=== PATIENT | female | born 1980 | race Caucasian/White ===

== ENCOUNTER → 2020-08-25 | Outpatient (CLI) | payer BC ==
[~2020-08-25] MED LIST: AMOCLA875 PO; AZIT250 PO; HYDR1TAB94 PO
== END ==
LOC: LAB SHORT 11:58 → LAB 11:58
DX: D48.5 Neoplasm of uncertain behavior of skin (principal); D22.39 Melanocytic nevi of other parts of face
CPT/HCPCS: 88305

== ENCOUNTER → 2022-10-18 | Outpatient (CLI) | payer BC ==
[2022-10-19 14:09] LABS: HPV 16 Negative (Negative); HPV 18 Negative (Negative); HPV OTHER HR TYPES Negative (Negative)
== END ==
LOC: LAB SHORT 10:11 → LAB 10:11
PROVIDERS: Family Medicine
DX: Z12.4 Encounter for screening for malignant neoplasm of cervix (principal)
CPT/HCPCS: 87624; G0145

== ENCOUNTER → 2025-02-18 | Outpatient (CLI) | payer BC | LOC: LAB SHORT 13:14 → LAB 13:14 | DX: D22.61 Melanocytic nevi of right upper limb, including shoulder (principal); D48.5 Neoplasm of uncertain behavior of skin | CPT/HCPCS: 88305 ==